=== PATIENT | female | born 1990 | race Caucasian/White ===

== ENCOUNTER 2018-02-23 16:57 | Emergency (ER) | payer MEDICAID ==
[~2018-02-23] VITALS: Ht 162.6 cm; Wt 75.0 kg
[~2018-02-23 16:57] MED LIST: FERR325T23 GT; NONE REPORTED; PREN-142 PO
[2018-02-23 17:01] VITALS: BP 110/76
[2018-02-23] MEDS ORDERED: ACETAMINOPHEN 325MG TABLET PO ONE (18:15)
[2018-02-23] MEDS ORDERED: ONDANSETRON HCL 4MG TABLET PO ONE (18:15)
== END 2018-02-23 19:30 | disposition left against medical advice (07) ==
LOC: ER 16:57
DX: R51 Headache (principal); M54.9 Dorsalgia, unspecified; R20.2 Paresthesia of skin; R10.9 Unspecified abdominal pain; Y08.89XA Assault by other specified means, initial encounter
CPT/HCPCS: 81025; 99283; Q0162

== ENCOUNTER 2020-02-03 01:27 | Emergency (ER) | payer SELFPAY ==
[~2020-02-03] VITALS: Ht 175.3 cm; Wt 79.0 kg
[~2020-02-03 01:27] MED LIST changes: -PREN-142 PO; +PRENATAL ONE T1 EACH PO
[2020-02-03] MEDS ORDERED: ACTIVATED CHARCOAL 50 G/240 ML TUBE PO ONE (01:45)
[2020-02-03] MEDS ORDERED: SODIUM CHLORIDE 0.9% 1,000 ML IV ONE (01:45)
[2020-02-03 02:48] LABS: BASOPHILS % 0.4 % (0.0-2.0); EOSINOPHILS % 0.6 % (0.0-5.0); HEMATOCRIT. 26.7 % (36.0-48.0); HEMOGLOBIN. 8.1 g/dL (12.0-16.0); LYMPHOCYTES % 13.4 % (20.0-50.0); MEAN CORPUSCULAR HEMOGLOBIN 20.3 pg (28.0-32.0); MEAN CORPUSCULAR VOLUME 66.5 fL (81.0-99.0); MEAN PLATELET VOLUME 9.4 fl (7.4-10.4); MONOCYTES % 8.5 % (2.0-8.0); NEUTROPHILS % 77.1 % (40.0-76.0); PLATELET 242 x1000/uL (130-400); RED BLOOD CELL COUNT 4.02 mill/uL (4.2-5.4); RED CELL DISTRIBUTION WIDTH 19.2 % (11.6-14.6)
[2020-02-03 02:56] LABS: CHLORIDE 107 mEq/L (98-107)
[2020-02-03 03:05] LABS: ETHANOL BLOOD < 10 mg/dL
[2020-02-03 03:25] LABS: CLARITY URINE CLEAR (CLEAR); COLOR URINE YELLOW (YELLOW); KETONES URINE NEGATIVE (NEGATIVE); LEUKOCYTE ESTERASE URINE TRACE (NEGATIVE); NITRITE URINE POSITIVE (NEGATIVE); OCCULT BLOOD URINE NEGATIVE (NEGATIVE); PROTEIN URINE NEGATIVE (NEGATIVE); SPECIFIC GRAVITY URINE 1.021 (1.005-1.030)
[2020-02-03 03:42] LABS: *BENZODIAZEPINES SCREEN URINE NEGATIVE (NEGATIVE); *COCAINE SCREEN URINE NEGATIVE (NEGATIVE); METHADONE URINE SCREEN NEGATIVE (NEGATIVE); OPIATES URINE SCREEN NEGATIVE (NEGATIVE); PHENCYCLIDINE URINE SCREEN NEGATIVE (NEGATIVE)
[2020-02-03 03:43] LABS: *BARBITURATES SCREEN URINE NEGATIVE (NEGATIVE)
[2020-02-03] MEDS ORDERED: CEFTRIAXONE 1 G PREMIX 50 ML IV SCH (03:45)
[2020-02-03 03:56] LABS: *AMPHETAMINES SCREEN URINE PRESUMTIVE POSITIVE (NEGATIVE); CANNABINOID URINE SCREEN PRESUMTIVE POSITIVE (NEGATIVE)
[2020-02-03 04:37] LABS: PLATELET ESTIMATE NORMAL
[2020-02-03 06:48] VITALS: BP 100/57
== END 2020-02-03 08:15 | disposition home or self-care (01) ==
LOC: ER 01:27
DX: D64.9 Anemia, unspecified (principal); R41.82 Altered mental status, unspecified; N39.0 Urinary tract infection, site not specified; F15.10 Other stimulant abuse, uncomplicated; F16.10 Hallucinogen abuse, uncomplicated; Z79.899 Other long term (current) drug therapy
CPT/HCPCS: 36415; 80053; 80305; 80307; 80320; 80329; 81003; 81025; 82962; 85025; 93005; 96360; 96361; 99284; J0696; J7030; G0480

== ENCOUNTER 2022-06-29 02:26 | Emergency (ER) | payer MEDICAID, OTHER ==
[~2022-06-29] VITALS: Ht 154.9 cm; Wt 85.0 kg
[2022-06-29 02:44] VITALS: BP 111/43
[2022-06-29] MEDS ORDERED: DIPHENHYDRAMINE 25MG CAPSULE PO ONE (09:15)
[2022-06-29] MEDS ORDERED: DIPH25CA83 PO (11:28)
[2022-06-29] MEDS ORDERED: HYDR28.485 TP (11:28)
== END 2022-06-29 11:54 | disposition home or self-care (01) ==
LOC: ER 02:26
DX: L29.9 Pruritus, unspecified (principal); J45.909 Unspecified asthma, uncomplicated
CPT/HCPCS: 99282; Q0163